=== PATIENT | female | born 1970 | race Caucasian/White ===

== ENCOUNTER 2020-12-12 08:12 | Outpatient (CLI) | payer OTHER ==
[2020-12-12] MEDS ORDERED: LIDOCAINE 1%-EPI 1:100K, 20ML ONE (09:31)
[2020-12-12] MEDS ORDERED: SODIUM BICARBONATE 4.2%, 5ML ONE (09:31)
[2020-12-12] MEDS ORDERED: LIDOCAINE 1%, 20ML ONE (09:31)
== END 2020-12-12 23:59 | disposition home or self-care (01) ==
LOC: CFH 08:12
PROVIDERS: ATTEND Family Medicine
DX: N63.15 Unspecified lump in the right breast, overlapping quadrants (principal); N60.31 Fibrosclerosis of right breast; N64.1 Fat necrosis of breast
CPT/HCPCS: 19083; 77065; 88305; J3490